=== PATIENT | female | born 1970 | race Caucasian/White ===

== ENCOUNTER 2016-12-22 14:41 | Emergency (ER) | payer MEDICAID, OTHER ==
[~2016-12-22] VITALS: Ht 170.2 cm; Wt 73.0 kg
[2016-12-22 14:49] VITALS: Ht 170.2 cm; Wt 73.0 kg
--- NOTE | 2016-12-22 15:38 | ERD ---
ER Documentation Chief Complaint Date/Time DATE: 12/22/16 TIME: 15:36 Chief Complaint CHEST CONGESTION , BACK PAIN , PT TALKING TO SELF HPI 46y/o undomicilied female ambulatory to the ED c/o a 2-3 month h/o nasal congestion, purulent nasal discharge and facial pain. Denies headache, eye pain , visual changes, otalgia, odynophagia or dysphagia. No shortness of breath or cough. No other URI symptoms, body, acjes fevers or chills. Denies anxiety or depression. ROS All systems reviewed and are negative except as per history of present illness. Medications Home Meds Active Scripts Loratadine* (Claritin*) 10 Mg Capsule, 10 MG PO DAILY for 10 Days, CAP Prov:MADINA ULLOA MD 12/22/16 Levofloxacin* (Levaquin*) 750 Mg Tablet, 750 MG PO DAILY for 7 Days, TAB Prov:MADINA ULLOA MD 12/22/16 PMhx/Soc Reviewed in chart. As per HPI. Medical and Surgical Hx: pt denies Medical Hx History of Surgery: Yes () Hx Neurological Disorder: No Hx Respiratory Disorders: No Hx Cardiac Disorders: No Hx Psychiatric Problems: Yes Hx Miscellaneous Medical Probl: No Hx Alcohol Use: No Hx Substance Use: No Hx Tobacco Use: No Smoking Status: Never smoker FmHx Not relevant to presenting complaint. Physical Exam Vitals Vital Signs Date Time Temp Pulse Resp B/P Pulse Ox O2 Delivery O2 Flow Rate FiO2 12/22/16 18:17 78 18 132/78 98 Room Air 12/22/16 14:49 98.1 87 18 138/78 99 Physical Exam Const: Alert, anxious in NAD Head: Atraumatic Eyes: Normal Conjunctiva ENT: Normal External Ears, Nose and Mouth. Frontal and maxillary sinuses tender to percussion Neck: Full range of motion. No meningismus. Resp: Clear to auscultation bilaterally Cardio: Regular rate and rhythm, no murmurs Abd: Soft, non tender, non distended. Normal bowel sounds Skin: No petechiae or rashes Back: No midline or flank tenderness Ext: No cyanosis, or edema Neur: Awake and alert. No focal deficit observed. Normal gait. Psych: Cooperative. Appears to be responding to internal stimuli. Denies depression, SI or HI. Denies hallucinations or delusions. Procedures/MDM DOCUMENTS REVIEWED: ED nurse, no prior records MEDICAL DECISION MAKINy/o undomicilied female ambulatory to the ED c/o a 2 -3 month h/o nasal congestion, purulent nasal discharge and facial pain. Presentation consistent with sinusitis. No pharyngitis. No evidence of intracranial extension, meningitis or encephalitis. Although patient denies psychiatric disease seems anxious with somewhar bizaare behavior but denies hallucinations, SI or HI. Cleared by pediatric social worker. Stable for discharge with antihistamines, Levaquin, precautionary instructions and outpatient followup as counseled. CALLS/CONSULTS: Time:15:40. Supervisor Type [employer]. Refer to her note. Counseled patient regarding diagnostic workup, diagnosis and need for followup. Understands to return to ED if symptoms recur, worsen or any other concerns. Departure Diagnosis: Primary Impression: Acute sinusitis with symptoms greater than 10 days Additional Impression: Homelessness Condition: Stable MADINA ULLOA MD December 22, 2016 15:38
[2016-12-22] MEDS ORDERED: LORA10CA PO (17:47)
[2016-12-22] MEDS ORDERED: LEVO750T25 PO (17:47)
[2016-12-22 18:17] VITALS: BP 132/78; PULSE 78; RESP 18
== END 2016-12-22 18:19 | disposition home or self-care (01) ==
LOC: E/R 14:41
DX: R09.89 Other specified symptoms and signs involving the circulatory and respiratory systems (principal); M54.9 Dorsalgia, unspecified
CPT/HCPCS: 99283

== ENCOUNTER 2019-03-18 17:54 | Emergency (ER) | payer SELFPAY ==
[~2019-03-18] VITALS: Ht 165.1 cm; Wt 72.4 kg
[2019-03-18 17:58] VITALS: Ht 165.1 cm; Wt 72.4 kg
[2019-03-18] MEDS ORDERED: OLANZAPINE (ODT) 5 MG TAB ODT ONE (18:30)
[2019-03-19 15:06] VITALS: BP 132/83; PULSE 76; RESP 18
== END 2019-03-19 15:06 ==
LOC: E/R 17:54
DX: R45.851 Suicidal ideations (principal); R40.2142 Coma scale, eyes open, spontaneous, at arrival to emergency department; R40.2252 Coma scale, best verbal response, oriented, at arrival to emergency department; R40.2362 Coma scale, best motor response, obeys commands, at arrival to emergency department
CPT/HCPCS: 36415; 80053; 80307; 81025; 85025; 99285